=== PATIENT | male | born 1985 | race Caucasian/White ===

== ENCOUNTER 2024-12-09 17:57 | Inpatient (IN) ==
[2024-12-09 18:50] LABS: Appearance Urine Clear (Clear); Bacteria Urine Automated None Seen (None Seen); Cast Urine Automated 0-2 /lpf (0-2); Epithelial Cell Urine Auto 0-2 /hpf (0-2); Glucose Urine UA 2+ (Negative); RBC Urine Automated 0-2 /hpf (0-2); WBC Urine Automated 0-5 /hpf (0-5)
[2024-12-09 18:52] LABS: Hematocrit (blood only) 40.5 % (42.0-52.0); Hemoglobin 13.7 g/dl (14.0-18.0); Mean Corpuscular Hemoglobin 30.7 pg (25.0-34.0); Mean Corpuscular Volume 90.8 fL (80.0-100.0); Platelet Count 382 K/uL (130-400); RDW Standard Deviation 40.8 fL (36.4-46.3); Red Blood Count 4.46 M/uL (4.70-6.10); White Blood Count 29.35 K/ul (4.8-10.8)
[2024-12-09 19:08] LABS: Alanine Aminotransferase 16.0 U/L (7-52); Albumin Level 4.3 gm/dl (3.4-5.0); Alkaline Phosphatase 73.0 U/L (34-104); Blood Urea Nitrogen 14.0 mg/dl (6-23); Calcium 9.8 mg/dl (8.6-10.3); Carbon Dioxide 26.0 mmol/L (21-32); Chloride 100.0 mmol/L (98-107); Creatinine Clr Calc Pharmacy 126.3 ml/min; Glucose 193.0 mg/dl (70-99(Fasting)); Potassium 4.2 mmol/L (3.5-5.1)
[2024-12-09 19:16] LABS: Albumin Globulin Ratio 1.1 (0.9-2); Anion Gap 9.0 (3-11); Globulin 4.0 gm/dl (2.5-4.0); Sodium 135.0 mmol/L (136-145); Total Protein 8.3 gm/dl (6.0-8.3)
--- NOTE | 2024-12-09 19:17 | Emergency Department Note ---
History of Present Illness General Chief complaint: Testicular Pain Stated complaint: RT TESTICLE SWOLLEN, PAIN PAST WEEK Time Seen by Provider: 12/09/24 19:12 History of Present Illness Maximum Pain Intensity: 6 This is a 39-year-old male who presents to the emergency department via private vehicle accompanied by corrections officers x 2 from [place] with complaints of "right swollen testicle, pain since last week". Patient notes worsening swelling over the past week. Was on antibiotics without change. Referred over concern for possible torsion. Denies any urinary symptoms. No trauma. Patient does note history of type 2 diabetes. Home Medications Medication Instructions Recorded Confirmed Type acetaminophen 500 mg tablet 1,000 mg PO BID PRN Pain 12/09/24 12/09/24 History (Tylenol Extra Strength) atorvastatin 10 mg tablet 10 mg PO HS 12/09/24 12/09/24 History meloxicam 7.5 mg tablet 7.5 mg PO BID 12/09/24 12/09/24 History metformin 500 mg tablet 500 mg PO DAILY 12/09/24 12/09/24 History Allergies Allergy/AdvReac Type Severity Reaction Status Date / Time No Known Allergies Allergy Verified 12/09/24 20:12 Past Med/Surg History Problem List (Updated 12/10/24 @ 03:03 by Oswaldo Ryan PA-C) Right testicular pain (Acute) Leukocytosis (Acute) Epididymitis, right (Acute) Orchitis of right testicle (Acute) Medical History (Updated 12/10/24 @ 03:03 by Oswaldo Ryan PA-C) Diabetes mellitus Hyperlipidemia Social History Smoking Status: Former smoker Tobacco Type: Cigarettes and Smokeless Tobacco (Dip or Chew) Hx Alcohol Use: No Hx Substance Use: No Preferred Language: Bolivian Communication Ability: Effective Beliefs That Will Affect Care: None Current Living Situation: Other Current Living Situation Comment: [facility] Feels Safe at Home: Yes Assistive Devices: Glasses Review of Systems A total of 10 systems reviewed and were otherwise negative Physical Exam Vital Signs Vital Signs - 24 hr 12/09/24 18:09 12/09/24 19:25 12/09/24 19:54 Temperature 36.6 C Temperature Source Temporal Artery Scan Pulse Rate 81 73 Pulse Rate from SpO2 Sensor 72 Respiratory Rate 18 21 Respiratory Effort / Characteristics Non-Labored Respiratory Depth Normal Blood Pressure 122/84 Blood Pressure Mean 96 Pulse Oximetry 97 97 Oxygen Delivery Method Room Air Sepsis New/Unexplained Change in Mental Status No Sepsis Action Taken by Nursing No Action Required 12/09/24 20:00 12/09/24 20:00 12/09/24 20:02 Temperature Temperature Source Pulse Rate 70 69 Pulse Rate from SpO2 Sensor 70 Respiratory Rate 22 Respiratory Effort / Characteristics Respiratory Depth Blood Pressure Blood Pressure Mean Pulse Oximetry 98 Oxygen Delivery Method Room Air Sepsis New/Unexplained Change in Mental Status Sepsis Action Taken by Nursing 12/09/24 20:18 12/09/24 20:21 12/09/24 20:45 Temperature Temperature Source Pulse Rate 62 71 63 Pulse Rate from SpO2 Sensor 64 72 63 Respiratory Rate 21 22 19 Respiratory Effort / Characteristics Respiratory Depth Blood Pressure 111/62 Blood Pressure Mean 78 Pulse Oximetry 98 99 98 Oxygen Delivery Method Sepsis New/Unexplained Change in Mental Status Sepsis Action Taken by Nursing VITAL SIGNS - Vital signs and nursing notes were reviewed. Stable and afebrile. GENERAL -39-year-old male appearing his stated age who is in no acute distress. Communicates well with provider and answers questions appropriately. SKIN - Without rashes. Please see exam below HEAD - NC/AT. EYES - Sclera anicteric. LUNGS - CTA CARDIAC - RRR ABDOMEN - Abdominal contour normal without pulsations or visible masses. BS normoactive all four quadrants. No tenderness, palpable masses, hepatosplenomegaly, or ascites noted. EXTREMITIES - +5/5 strength noted in UE/LE bilaterally. NEUROLOGIC - CTA PSYCH -alert, oriented and pleasant on exam GUverbal consent was obtained. 2 corrections officers at bedside. ED attending physician Dr. Villalobos present at bedside to homeland security program specialist scrotal exam. There is erythema and edema with induration to the right hemiscrotum. Tenderness noted. Erythema does track to the right medial proximal thigh. There is no extension into the lower abdomen. Benign abdomen noted. No lesions. Course Administered Medications Atorvastatin Calcium (Atorvastatin 10 Mg Tab) 10 mg PO HS MARIELENA Stop: 01/08/25 22:59 Last Admin: 12/10/24 00:02 Dose: 10 mg Documented By: OLAYINKA Lactated Ringer's (Lr) 1,000 mls @ 80 mls/hr IV .[id number] MARIELENA Stop: 12/10/24 10:14 Last Admin: 12/09/24 22:18 Dose: 80 mls/hr Documented By: KAYLIE Piperacillin Sod/Tazobactam Sod (Zosyn) 4.5 gm in 100 mls @ 25 mls/hr IV Q8H MARIELENA; Protocol Stop: 12/20/24 01:59 Last Admin: 12/10/24 01:54 Dose: 25 mls/hr Documented By: OLAYINKA Insulin Aspart (Insulin Aspart Per Unit Charge) 0 units SC ACHS MARIELENA Stop: 01/08/25 22:59 Last Admin: 12/10/24 00:02 Dose: 1 units Documented By: OLAYINKA Co-signed By: aby Tramadol HCl (Tramadol Hcl 50 Mg Tablet) 50 mg PO Q4H PRN PRN Reason: Moderate Pain (Scale 4, 5, 6) Stop: 01/08/25 21:43 Last Admin: 12/10/24 02:03 Dose: 50 mg Documented By: Admin: 12/09/24 22:32 Dose: 50 mg Documented By: KAYLIE Discontinued Medications Piperacillin Sod/Tazobactam Sod (Zosyn) 4.5 gm in 100 mls @ 200 mls/hr IV NOW ONE; Protocol Stop: 12/09/24 20:10 Last Infusion: 12/09/24 22:01 Dose: Infused Documented By: Admin: 12/09/24 20:21 Dose: 200 mls/hr Documented By: KAYLIE Vancomycin HCl 2,250 mg/ (Sodium Chloride) 545 mls @ 200 mls/hr IV NOW ONE Stop: 12/09/24 22:24 Last Infusion: 12/10/24 00:15 Dose: Infused Documented By: Admin: 12/09/24 21:11 Dose: 200 mls/hr Documented By: XIAO Sodium Chloride (Nss) 1,000 mls @ 999 mls/hr IV .Q1H1M ONE Stop: 12/09/24 20:43 Last Infusion: 12/09/24 22:01 Dose: Infused Documented By: Admin: 12/09/24 20:21 Dose: 999 mls/hr Documented By: KAYLIE Morphine Sulfate (Morphine Sulfate 4 Mg/Ml 1 Ml Carp\\Vial) 4 mg IV NOW STA Stop: 12/09/24 19:58 Last Admin: 12/09/24 20:21 Dose: Not Given Documented By: KAYLIE Ondansetron HCl (Ondansetron Inj 2 Mg/Ml 2 Ml Vial) 4 mg IV NOW STA Stop: 12/09/24 19:58 Last Admin: 12/09/24 20:21 Dose: 4 mg Documented By: KAYLEI Medical Decision Making Laboratory Data 12/09/24 18:33 12/09/24 18:33 Lab Results 12/09/24 12/09/24 Range/Units 18:33 20:01 WBC 29.35 H (4.8-10.8) K/ul RBC 4.46 L (4.70-6.10) M/uL Hgb 13.7 L (14.0-18.0) g/dl Hct 40.5 L (42.0-52.0) % MCV 90.8 (80.0-100.0) fL MCH 30.7 (25.0-34.0) pg MCHC 33.8 (32.0-36.0) g/dL RDW Std Deviation 40.8 (36.4-46.3) fL RDW Coeff of Cristian 12.3 (11.5-14.5) % Plt Count 382 (130-400) K/uL MPV 9.4 (9.4-12.4) fL Neutrophils % (Manual) 85 % Lymphocytes % (Manual) 9 % Monocytes % (Manual) 3 % Metamyelocytes % (Man) 1 % Myelocytes % (Man) 1 % Plasma Cell % (Manual) 1 % Neutrophils # (Manual) 24.95 H (1.40-6.50) K/uL Total Absolute Neuts 24.95 H (1.4-6.5) K/uL Lymphocytes # (Manual) 2.64 (1.2-3.4) K/uL Total Abs Lymphocytes 2.94 (1.2-3.4) K/uL Monocytes # (Manual) 0.88 H (0.11-0.59) K/uL Metamyelocytes # (Man) 0.29 H (0-0) K/uL Myelocytes # (Manual) 0.29 H (0-0) K/uL Plasma Cell # (Manual) 0.29 H (0-0) K/uL RBC Morphology Unremarkable Sodium 135 L (136-145) mmol/L Potassium 4.2 (3.5-5.1) mmol/L Chloride 100 (98-107) mmol/L Carbon Dioxide 26 (21-32) mmol/L Anion Gap 9 (3-11) BUN 14 (6-23) mg/dl Creatinine 1.03 (0.6-1.4) mg/dl Est Cr Clr Drug Dosing 126.3 ml/min eGFR 95.35 BUN/Creatinine Ratio 13.6 (10-20) Glucose 193 H (70-99(Fasting)) mg/dl Lactate 2.3 H* (0.4-2.0) mmol/L Calcium 9.8 (8.6-10.3) mg/dl Total Bilirubin 0.5 (0.2-1.0) mg/dl AST 16 (13-39) U/L ALT 16 (7-52) U/L Alkaline Phosphatase 73 (34-104) U/L Total Protein 8.3 (6.0-8.3) gm/dl Albumin 4.3 (3.4-5.0) gm/dl Globulin 4.0 (2.5-4.0) gm/dl Albumin/Globulin Ratio 1.1 (0.9-2) Procalcitonin 0.25 (0-0.5) ng/ml Urine Color Yellow Urine Appearance Clear (Clear) Urine pH 6.0 (4.5-7.5) Ur Specific [place] 1.023 (1.000-1.030) Urine Protein 1+ H (Negative) Urine Glucose (UA) 2+ H (Negative) Urine Ketones Trace H (Negative) Urine Blood Negative (Negative) Urine Nitrite Negative (Negative) Urine Bilirubin Negative (Negative) Urine Urobilinogen Negative (Negative) Ur Leukocyte Esterase Trace H (Negative) Urine WBC (Auto) 0-5 (0-5) /hpf Urine RBC (Auto) 0-2 (0-2) /hpf U Hyaline Cast (Auto) 0-2 (0-2) /lpf U Epithel Cells (Auto) 0-2 (0-2) /hpf Urine Bacteria (Auto) None Seen (None Seen) Urine Comment Imaging Data Radiologist's Impression: Scrotum Ultrasound 12/09/24 18:33 Clinical history: Pain and swelling Technique: Testicular sonography was performed Findings: There is increased vascularity of the right testis, which may be due to orchitis. No clear mass lesion is seen The right epididymis appears enlarged, hypervascular, and heterogeneous, concerning for epididymitis The left testis and left epididymis appear unremarkable. There are small bilateral hydroceles. No definite varicocele is noted. No hernia is visualized Impression: 1. Suspected right orchitis and right epididymitis 2. Small bilateral hydroceles ACT 112: Positive. There are findings on this exam that require communication between the performing entity and the patient following Patient Test Result Information Act ([place] ACT 112) guidelines. Electronically signed by Paco Arias 12-09-2024 7:57 PM MDM Narrative Patient was seen and evaluated as above in room D6. Review was performed of triage nursing notes and vital signs. I did review pertinent previous visits and patient history. Patient presents to us today for evaluation of right scrotal pain for the past week. No trauma. No injury. Examination is positive for that of right hemiscrotum erythema and edema as well as tenderness. Options of care were discussed with the patient. IV access was established. Labs were drawn. There is leukocytosis 29.35. Minor anemia with hemoglobin at 13.7. Mild hyponatremia 135. Hyperglycemia 193. Lactate initially returned elevated but cleared with fluids. 30/kg not given as patient does not meet criteria for severe sepsis, lactate less than 4. Procalcitonin detectable but within normal range. Urinalysis without sign of infection. Ultrasound positive for right orchitis and epididymitis which does clinically correlate. Broad- spectrum IV antibiotics ordered. At this time I do believe that hospitalization is warranted. Case discussed with the hospitalist service. Please refer to further documentation regarding his stay. In the evaluation and treatment of this patient the following differential diagnoses were entertained: UTI, pyelonephritis, epididymitis, orchitis, Rachel gangrene, among others Impression & Plan Orchitis of right testicle, Epididymitis, right, Leukocytosis, Right testicular pain Discharge Plan Visit Data Chief Complaint: Testicular Pain Stated Complaint: RT TESTICLE SWOLLEN, PAIN PAST WEEK ED Provider: Chase Villalobos ED Midlevel Provider: Oswaldo Ryan Discharge Problem: Orchitis of right testicle, Epididymitis, right, Leukocytosis, Right testicular pain Patient Disposition: Admitted As Inpatient Condition: Good Discharge Instructions Interventions: ED Discharge Assessment Last Done: 12/09/24 22:39
[2024-12-09 19:25] LABS: Bilirubin,Total 0.5 mg/dl (0.2-1.0)
[2024-12-09 19:33] LABS: ALC (manual) 2.94 K/uL (1.2-3.4); ANC (manual) 24.95 K/uL (1.4-6.5); RBC Morphology Unremarkable
[2024-12-09] MEDS ORDERED: VANCOMYCIN CONSULT ACTIVE PRN ×2 (19:41→23:00)
--- NOTE | 2024-12-09 19:58 | Ultrasound Report ---
Clinical history: Pain and swelling Technique: Testicular sonography was performed Findings: There is increased vascularity of the right testis, which may be due to orchitis. No clear mass lesion is seen The right epididymis appears enlarged, hypervascular, and heterogeneous, concerning for epididymitis The left testis and left epididymis appear unremarkable. There are small bilateral hydroceles. No definite varicocele is noted. No hernia is visualized Impression: 1. Suspected right orchitis and right epididymitis 2. Small bilateral hydroceles ACT 112: Positive. There are findings on this exam that require communication between the performing entity and the patient following Patient Test Result Information Act ([place] ACT 112) guidelines. Electronically signed by Paco Arias 12-09-2024 7:57 PM
[2024-12-09] MEDS: MoRPHine SULFATE 4 MG/ML 1 ML CARP\\VIAL IV STA (20:21)
[2024-12-09] MEDS: SODIUM CHLORIDE 0.9% 1,000 ML IV ONE (20:21)
[2024-12-09] MEDS: ONDANSETRON INJ 2 MG/ML 2 ML VIAL IV STA (20:21)
[2024-12-09] MEDS: PIPERACILLIN/TAZOBACTAM 4.5 GM/100 ML BAG IV ONE (20:21)
--- NOTE | 2024-12-09 20:48 | History & Physical Report ---
Date of Service December 09, 2024 Assessment & Plan (1) Orchitis of right testicle: (2) Epididymitis, right: (3) Hyperlipidemia: (4) Diabetes mellitus: Plan The patient is a 39-year-old male past medical history including hyperlipidemia, and diabetes mellitus. He presents to the emergency department with progressively worsening painful and swollen right testicle since 12/02/2024, despite have been placed on Sulfatrim DS twice daily on that date. He denies any recent trauma. He denies any systemic symptoms of fevers, chills, joint or muscle aches. He said no previous occurrence of this type of problem. Ultrasound of scrotum in the emergency department showed a suspected right orchitis and epididymitis. He was started on vancomycin IV and Zosyn IV by the ED, and received 1 L normal saline bolus from the ED. [facility]. Right sided orchitis/epididymitis- WBC 29.35 with left shift Continue vancomycin IV and Zosyn IV begun in ED Status post 1 L normal saline bolus in the ED Placed on LR at 80 mL/h x 1 additional liter CBC with differential, renal function panel magnesium level in the a.m. Acetaminophen 650 mg by mouth every 6 hours as needed for mild pain or fever Tramadol 50 mg by mouth every 4 hours as needed for moderate pain Morphine 2 mg IV every 4 hours as needed for severe pain Consult urology Diabetes mellitus- Glucose 193 on admission Hold metformin Place in Accu-Cheks with NovoLog SSI Check hemoglobin A1c Hyperlipidemia- Continue atorvastatin Check a fasting lipid panel History of Present Illness Chief Complaint: The patient presents to the emergency department from [facility] accompanied by corrections officers x 2, with complaint of a swollen painful right testicle worsening over the past week despite having been put on Sulfatrim DS twice daily since 12/02/2024. Primary Care Provider: [facility] The patient is a 39-year-old male past medical history including hyperlipidemia, and diabetes mellitus. He presents to the emergency department with progressively worsening painful and swollen right testicle since 12/02/2024, despite have been placed on Sulfatrim DS twice daily on that date. He denies any recent trauma. He denies any systemic symptoms of fevers, chills, joint or muscle aches. He said no previous occurrence of this type of problem. Ultrasound of scrotum in the emergency department showed a suspected right orchitis and epididymitis. He was started on vancomycin IV and Zosyn IV by the ED, and received 1 L normal saline bolus from the ED. [facility] was then [facility] Allergies Allergy/AdvReac Type Severity Reaction Status Date / Time No Known Allergies Allergy Verified 12/09/24 20:12 Home Medications Medication Instructions Recorded Confirmed Type acetaminophen 500 mg tablet 1,000 mg PO BID PRN Pain 12/09/24 12/09/24 History (Tylenol Extra Strength) atorvastatin 10 mg tablet 10 mg PO HS 12/09/24 12/09/24 History meloxicam 7.5 mg tablet 7.5 mg PO BID 12/09/24 12/09/24 History metformin 500 mg tablet 500 mg PO DAILY 12/09/24 12/09/24 History Past Med/Surg History Problem List (Updated 12/09/24 @ 21:39 by Price Santiago MD) Epididymitis, right Orchitis of right testicle Medical History (Updated 12/09/24 @ 21:39 by Price Santiago MD) Diabetes mellitus Hyperlipidemia Social History Smoking Status: Former smoker Preferred Language: Nigerian Feels Safe at Home: Yes Review of Systems Review of Systems: The patient denies chest pain, palpitations, shortness of breath, dyspnea on exertion, cough, lower extremity swelling, sore throat, fevers, chills, sweats, weight change, fatigue, nausea, vomiting, diarrhea , constipation, abdominal pain, blood in urine or stool, dysuria, urinary frequency or urgency, lightheadedness, dizziness, headache, memory loss, loss of consciousness, abnormal bruising or bleeding, imbalance, focal or generalized weakness, numbness or tingling in arms or legs, generalized arthralgias or myalgias, back or neck pain, or night sweats. The review of systems is otherwise negative other than for that already noted above, and at least 10 systems have been reviewed. Physical Exam Physical Exam: The patient is awake, alert and oriented 3, well developed and well nourished, normocephalic and atraumatic, lying in bed and in no acute distress. HEENT--PERRL, EOMI, mucous membranes and oropharynx mildly dry. Neck--supple. No JVD. No bruits. Thyroid normal, trachea midline, no adenopathy. Heart--normal S1 and S2. No murmurs, rubs or gallops. Lungs--clear bilaterally, no respiratory distress, no accessory muscle use. Abdomen--normal bowel sounds and soft. Nontender. Nondistended, no hernias or masses, no organomegaly. Testicular exam-left normal. Right swollen and painful generally. Extremities--no cyanosis or clubbing. No edema. There are good distal pulses b/l. Dermatologic--normal skin turgor, normal color, no abnormal lymph nodes, no rash. Neurologic--cranial nerves II through XII grossly intact. Rheumatologic--normal range of motion. Psychiatric--normal affect. Results & Data Results & Data Vital Signs (Past 12 Hours) Vital Signs Temp Pulse Resp BP Pulse Ox O2 Del Method 12/09/24 20:21 71 22 111/62 99 12/09/24 20:18 62 21 98 12/09/24 20:02 69 12/09/24 20:00 70 22 98 12/09/24 20:00 Room Air 12/09/24 19:54 73 21 97 12/09/24 18:09 36.6 C 81 18 122/84 97 Room Air Laboratory Results Laboratory Results WBC 29.35 K/ul (4.8-10.8) H 12/09/24 18:33 RBC 4.46 M/uL (4.70-6.10) L 12/09/24 18:33 Hgb 13.7 g/dl (14.0-18.0) L 12/09/24 18:33 Hct 40.5 % (42.0-52.0) L 12/09/24 18:33 MCV 90.8 fL (80.0-100.0) 12/09/24 18:33 MCH 30.7 pg (25.0-34.0) 12/09/24 18:33 MCHC 33.8 g/dL (32.0-36.0) 12/09/24 18:33 RDW Std Deviation 40.8 fL (36.4-46.3) 12/09/24 18:33 RDW Coeff of Cristian 12.3 % (11.5-14.5) 12/09/24 18:33 Plt Count 382 K/uL (130-400) 12/09/24 18:33 MPV 9.4 fL (9.4-12.4) 12/09/24 18:33 Neutrophils % (Manual) 85 % 12/09/24 18:33 Lymphocytes % (Manual) 9 % 12/09/24 18:33 Monocytes % (Manual) 3 % 12/09/24 18:33 Metamyelocytes % (Man) 1 % 12/09/24 18:33 Myelocytes % (Man) 1 % 12/09/24 18:33 Plasma Cell % (Manual) 1 % 12/09/24 18:33 Neutrophils # (Manual) 24.95 K/uL (1.40-6.50) H 12/09/24 18:33 Total Absolute Neuts 24.95 K/uL (1.4-6.5) H 12/09/24 18:33 Lymphocytes # (Manual) 2.64 K/uL (1.2-3.4) 12/09/24 18:33 Total Abs Lymphocytes 2.94 K/uL (1.2-3.4) 12/09/24 18:33 Monocytes # (Manual) 0.88 K/uL (0.11-0.59) H 12/09/24 18:33 Metamyelocytes # (Man) 0.29 K/uL (0-0) H 12/09/24 18:33 Myelocytes # (Manual) 0.29 K/uL (0-0) H 12/09/24 18:33 Plasma Cell # (Manual) 0.29 K/uL (0-0) H 12/09/24 18:33 RBC Morphology Unremarkable 12/09/24 18:33 Sodium 135 mmol/L (136-145) L 12/09/24 18:33 Potassium 4.2 mmol/L (3.5-5.1) 12/09/24 18:33 Chloride 100 mmol/L (98-107) 12/09/24 18:33 Carbon Dioxide 26 mmol/L (21-32) 12/09/24 18:33 Anion Gap 9 (3-11) 12/09/24 18:33 BUN 14 mg/dl (6-23) 12/09/24 18: Creatinine 1.03 mg/dl (0.6-1.4) 12/09/24 18: Est Cr Clr Drug Dosing 126.3 ml/min 12/09/24 18:33 eGFR 95.35 12/09/24 18:33 BUN/Creatinine Ratio 13.6 (10-20) 12/09/24 18: Glucose 193 mg/dl (70-99(Fasting)) H 12/09/24 18: Lactate 2.3 mmol/L (0.4-2.0) H* 12/09/24 20:01 Calcium 9.8 mg/dl (8.6-10.3) 12/09/24 18: Total Bilirubin 0.5 mg/dl (0.2-1.0) 12/09/24 18: AST 16 U/L (13-39) 12/09/24 18: ALT 16 U/L (7-52) 12/09/24 18: Alkaline Phosphatase 73 U/L (34-104) 12/09/24 18: Total Protein 8.3 gm/dl (6.0-8.3) 12/09/24 18: Albumin 4.3 gm/dl (3.4-5.0) 12/09/24 18: Globulin 4.0 gm/dl (2.5-4.0) 12/09/24 18: Albumin/Globulin Ratio 1.1 (0.9-2) 12/09/24 18: Urine Color Yellow 12/09/24 18: Urine Appearance Clear (Clear) 12/09/24 18: Urine pH 6.0 (4.5-7.5) 12/09/24 18: Ur Specific [place] 1.023 (1.000-1.030) 12/09/24 18: Urine Protein 1+ (Negative) H 12/09/24 18: Urine Glucose (UA) 2+ (Negative) H 12/09/24 18: Urine Ketones Trace (Negative) H 12/09/24 18: Urine Blood Negative (Negative) 12/09/24 18: Urine Nitrite Negative (Negative) 12/09/24 18: Urine Bilirubin Negative (Negative) 12/09/24 18: Urine Urobilinogen Negative (Negative) 12/09/24 18: Ur Leukocyte Esterase Trace (Negative) H 12/09/24 18: Urine WBC (Auto) 0-5 /hpf (0-5) 12/09/24 18:33 Urine RBC (Auto) 0-2 /hpf (0-2) 12/09/24 18:33 U Hyaline Cast (Auto) 0-2 /lpf (0-2) 12/09/24 18:33 U Epithel Cells (Auto) 0-2 /hpf (0-2) 12/09/24 18:33 Urine Bacteria (Auto) None Seen (None Seen) 12/09/24 18:33 Urine Comment 12/09/24 18:33 Impressions Scrotum Ultrasound 12/09/24 18:33 Clinical history: Pain and swelling Technique: Testicular sonography was performed Findings: There is increased vascularity of the right testis, which may be due to orchitis. No clear mass lesion is seen The right epididymis appears enlarged, hypervascular, and heterogeneous, concerning for epididymitis The left testis and left epididymis appear unremarkable. There are small bilateral hydroceles. No definite varicocele is noted. No hernia is visualized Impression: 1. Suspected right orchitis and right epididymitis 2. Small bilateral hydroceles ACT 112: Positive. There are findings on this exam that require communication between the performing entity and the patient following Patient Test Result Information Act ([place] ACT 112) guidelines. Electronically signed by Paco Arias 12-09-2024 7:57 PM Code Status & VTE Plan Code Status Full code VTE Prophylaxis Plan VTE Prophylaxis will be ordered: Yes PG Care Time/CCT Total # of Minutes Spent Total Time Spent with Patient: Total time spent is greater than 50% in coordination of care (as documented) at patient's floor/unit and/or counseling patient: Coding Level of Care Code 12354 INT INP/OBS CARE 3/75MIN Diagnoses Orchitis of right testicle N45.2 Epididymitis, right N45.1 Hyperlipidemia E78.5 Diabetes mellitus E11.9
[2024-12-09] MEDS: VANCOMYCIN HCL 2,250 MG in SODIUM CHLORIDE 0.9% 500 ML IV ONE (21:11)
[2024-12-09] MEDS ORDERED: MoRPHine SULFATE 4 MG/ML 1 ML CARP\\VIAL IV PRN (21:44)
[2024-12-09] MEDS: LACTATED RINGER'S 1,000 ML IV SCH (22:18)
[2024-12-09] MEDS ORDERED: GLUCOSE 40% GEL 15 GM TUBE PO PRN (23:00)
[2024-12-09] MEDS ORDERED: GLUCOSE 10 TAB/TUBE PO PRN (23:00)
[2024-12-09] MEDS ORDERED: GLUCAGON FOR INJ 1 MG VIAL SQ PRN (23:00)
[2024-12-09] MEDS ORDERED: ONDANSETRON INJ 2 MG/ML 2 ML VIAL IV PRN (23:00)
[2024-12-09] MEDS ORDERED: DEXTROSE 50% 50 ML SYRINGE IV PRN (23:00)
[2024-12-09] MEDS ORDERED: CARBOHYDRATES FOR HYPOGLYCEMIA PO PRN (23:00)
[2024-12-09] MEDS ORDERED: ACETAMINOPHEN 325 MG TAB PO PRN (23:00)
[2024-12-10] MEDS: ATORVASTATIN 10 MG TAB PO SCH (00:02)
[2024-12-10] MEDS: INSULIN ASPART PER UNIT CHARGE SC SCH (00:02)
[2024-12-10] MEDS: 4.5GM EXT INFUSION IV SCH (01:54)
[2024-12-10] MEDS ORDERED: PIPERACILLIN/TAZOBACTAM 4.5 GM/100 ML BAG IV ONE (05:00)
[2024-12-10 07:18] LABS: Hemoglobin A1C 8.2 % (4.5-5.6)
[2024-12-10] MEDS: VANCOMYCIN HCL 1,500 MG in SODIUM CHLORIDE 0.9% 500 ML IV SCH (07:30)
[2024-12-10 07:33] LABS: Hematocrit (blood only) 35.2 % (42.0-52.0); Hemoglobin 11.7 g/dl (14.0-18.0); Immature Granulocytes # (auto) 0.21 K/uL (0.01-0.20); Immature Granulocytes % (auto) 1.1 %; Mean Corpuscular Hemoglobin 30.5 pg (25.0-34.0); Mean Corpuscular Volume 91.7 fL (80.0-100.0); Platelet Count 342 K/uL (130-400); RDW Standard Deviation 41.5 fL (36.4-46.3); Red Blood Count 3.84 M/uL (4.70-6.10); White Blood Count 19.31 K/ul (4.8-10.8)
[2024-12-10 07:59] LABS: Albumin Level 3.4 gm/dl (3.4-5.0); Anion Gap 8.0 (3-11); Blood Urea Nitrogen 11.0 mg/dl (6-23); Calcium 9.0 mg/dl (8.6-10.3); Carbon Dioxide 28.0 mmol/L (21-32); Chloride 104.0 mmol/L (98-107); Cholesterol 82.0 mg/dl (0-200); Creatinine Clr Calc Pharmacy 133.7 ml/min; Glucose 117.0 mg/dl (70-99(Fasting)); HDL Cholesterol 14.0 mg/dl; Magnesium 2.2 mg/dl (1.7-2.4); Potassium 4.0 mmol/L (3.5-5.1); Sodium 140.0 mmol/L (136-145); Triglycerides 110.0 mg/dl (0-150)
--- NOTE | 2024-12-10 11:03 | Pharmacy Report ---
Pharmacy PK ABX Note - Date of Service December 10, 2024 - Assessment and Plan Assessment 39 year old M receiving vancomycin and Zosyn for treatment of right sided orchitis/epididymitis. Progressively worsening pain and testicle swelling despite starting on Bactrim DS on 12/02. * leukocytosis (WBC 29.3 on admit and 19.3 today), afebrile, renal function normal and at baseline. * Blood cultures x 2 from 12/09 are pending Day # 2 of antimicrobial therapy. Plan Vancomycin * Loading dose: 2250 mg IV x 1 * Maintenance dose: 1500 mg IV every 12 hours * Regimen is predicted to achieve target AUC/HILDA of 400-600 mg/L.hr * Random level ordered for: 12/11 at 0730 Pharmacy will continue to follow and will adjust dose/frequency as necessary. Thank you. Pharmacy has transitioned to AUC monitoring for vancomycin. AUC/HILDA is the preferred PK/PD target and is associated with decreased risk of nephrotoxicity compared to traditional trough targets.
[2024-12-10] MEDS: KETOROLAC 30 MG/ML VIAL IV SCH (17:57)
--- NOTE | 2024-12-10 20:56 | Hospitalist Progress Note ---
Date of Service December 10, 2024 Assessment & Plan (1) Orchitis of right testicle: (2) Epididymitis, right: (3) Hyperlipidemia: (4) Diabetes mellitus: Plan 39yo male with hyperlipidemia and diabetes mellitus. Presented with progressively worsening painful and swollen right testicle since 12/02/2024 despite have been placed on Sulfatrim DS twice daily on that date. He denies any recent trauma. H Ultrasound of scrotum showed suspected right orchitis and epididymitis. He was started on vancomycin IV and Zosyn IV by the ED. Right sided orchitis/epididymitis- -clinically improving -peak WBC of 29.35 -improved today to 19 -repeat cbc in am -continue vancomycin IV and Zosyn IV begun in ED -add toradol 30mg IV q6h x 4 doses to help with pain/swelling -scrotal support & elevation -ice -send urine for GC/chlamydia but he is improving w/o specific Rx for those pathogens -at d/c can likely go to levaquin 500mg daily x 10 days PO Diabetes mellitus- -Hold metformin -a1c 8.2% -metformin dose should be increased at discharge -novolog SSI while here Hyperlipidemia- -Continue atorvastatin if doing better tomorrow can d/c back to [facility] Admission and Anticipated Discharge Date Admission Date: December 09, 2024 Subjective only complaint is that of scrotal pain but not as severe as back at the intermediate no fevers no chills eating well recommended scrotal support while in bed, briefs, ice, etc. Physical Exam Physical Exam: gen - NAD, nontoxic, laying in bed watching TV mouth - MMM heart - RRR, s1 s2, no murmur lungs - CTA b/l abd - soft NT ND BS+ ext - no edema, pulses 2+ b/l feet - right-sided scrotal edema with erythema/inflammation; left scrotum minimal swelling Results & Data Results & Data Vital Signs (Past 12 Hours) Vital Signs Temp Pulse Resp BP Pulse Ox O2 Del Method 12/10/24 15:26 36.8 C 83 16 134/73 97 Room Air Laboratory Results Laboratory Results - last 48 hr 12/09/24 12/09/24 12/09/24 18:33 20:01 21:50 WBC 29.35 H RBC 4.46 L Hgb 13.7 L Hct 40.5 L MCV 90.8 MCH 30.7 MCHC 33.8 RDW Std Deviation 40.8 RDW Coeff of Cristian 12.3 Plt Count 382 MPV 9.4 Immature Gran % (Auto) Neut % (Auto) Lymph % (Auto) [place] % (Auto) Eos % (Auto) Baso % (Auto) Neut # (Auto) Lymph # (Auto) [place] # (Auto) Eos # (Auto) Baso # (Auto) Immature Gran # (Auto) Neutrophils % (Manual) 85 Lymphocytes % (Manual) 9 Monocytes % (Manual) 3 Metamyelocytes % (Man) 1 Myelocytes % (Man) 1 Plasma Cell % (Manual) 1 Neutrophils # (Manual) 24.95 H Total Absolute Neuts 24.95 H Lymphocytes # (Manual) 2.64 Total Abs Lymphocytes 2.94 Monocytes # (Manual) 0.88 H Metamyelocytes # (Man) 0.29 H Myelocytes # (Manual) 0.29 H Plasma Cell # (Manual) 0.29 H RBC Morphology Unremarkable Sodium 135 L Potassium 4.2 Chloride 100 Carbon Dioxide 26 Anion Gap 9 BUN 14 Creatinine 1.03 Est Cr Clr Drug Dosing 126.3 eGFR 95.35 BUN/Creatinine Ratio 13.6 Glucose 193 H POC Glucose Estimat Average Glucose Hemoglobin A1c Lactate 2.3 H* 1.2 Calcium 9.8 Phosphorus Magnesium Total Bilirubin 0.5 AST 16 ALT 16 Alkaline Phosphatase 73 Total Protein 8.3 Albumin 4.3 Globulin 4.0 Albumin/Globulin Ratio 1.1 Triglycerides Cholesterol LDL Cholesterol, Calc VLDL Cholesterol, Calc HDL Cholesterol Cholesterol/HDL Ratio Procalcitonin 0.25 Urine Color Yellow Urine Appearance Clear Urine pH 6.0 Ur Specific [place] 1.023 Urine Protein 1+ H Urine Glucose (UA) 2+ H Urine Ketones Trace H Urine Blood Negative Urine Nitrite Negative Urine Bilirubin Negative Urine Urobilinogen Negative Ur Leukocyte Esterase Trace H Urine WBC (Auto) 0-5 Urine RBC (Auto) 0-2 U Hyaline Cast (Auto) 0-2 U Epithel Cells (Auto) 0-2 Urine Bacteria (Auto) None Seen Urine Comment Random Vancomycin 12/09/24 12/10/24 12/10/24 23:06 06:30 08:14 WBC 19.31 H D RBC 3.84 L Hgb 11.7 L Hct 35.2 L MCV 91.7 MCH 30.5 MCHC 33.2 RDW Std Deviation 41.5 RDW Coeff of Cristian 12.4 Plt Count 342 MPV 9.3 L Immature Gran % (Auto) 1.1 Neut % (Auto) 73.1 Lymph % (Auto) 16.1 [place] % (Auto) 7.4 Eos % (Auto) 1.9 Baso % (Auto) 0.4 Neut # (Auto) 14.12 H Lymph # (Auto) 3.11 [place] # (Auto) 1.42 H Eos # (Auto) 0.37 Baso # (Auto) 0.08 Immature Gran # (Auto) 0.21 H Neutrophils % (Manual) Lymphocytes % (Manual) Monocytes % (Manual) Metamyelocytes % (Man) Myelocytes % (Man) Plasma Cell % (Manual) Neutrophils # (Manual) Total Absolute Neuts Lymphocytes # (Manual) Total Abs Lymphocytes Monocytes # (Manual) Metamyelocytes # (Man) Myelocytes # (Manual) Plasma Cell # (Manual) RBC Morphology Sodium 140 Potassium 4.0 Chloride 104 Carbon Dioxide 28 Anion Gap 8 BUN 11 Creatinine 0.95 Est Cr Clr Drug Dosing 133.7 eGFR 105.07 BUN/Creatinine Ratio 11.6 Glucose 117 H POC Glucose 141 H 103 H Estimat Average Glucose 189 Hemoglobin A1c 8.2 H Lactate Calcium 9.0 Phosphorus 3.5 Magnesium 2.2 Total Bilirubin AST ALT Alkaline Phosphatase Total Protein Albumin 3.4 Globulin Albumin/Globulin Ratio Triglycerides 110 Cholesterol 82 LDL Cholesterol, Calc 46 VLDL Cholesterol, Calc 22 HDL Cholesterol 14 Cholesterol/HDL Ratio 5.9 H Procalcitonin Urine Color Urine Appearance Urine pH Ur Specific [place] Urine Protein Urine Glucose (UA) Urine Ketones Urine Blood Urine Nitrite Urine Bilirubin Urine Urobilinogen Ur Leukocyte Esterase Urine WBC (Auto) Urine RBC (Auto) U Hyaline Cast (Auto) U Epithel Cells (Auto) Urine Bacteria (Auto) Urine Comment Random Vancomycin 12/10/24 12/10/24 12/10/24 11:55 16:29 20:11 WBC RBC Hgb Hct MCV MCH MCHC RDW Std Deviation RDW Coeff of Cristian Plt Count MPV Immature Gran % (Auto) Neut % (Auto) Lymph % (Auto) [place] % (Auto) Eos % (Auto) Baso % (Auto) Neut # (Auto) Lymph # (Auto) [place] # (Auto) Eos # (Auto) Baso # (Auto) Immature Gran # (Auto) Neutrophils % (Manual) Lymphocytes % (Manual) Monocytes % (Manual) Metamyelocytes % (Man) Myelocytes % (Man) Plasma Cell % (Manual) Neutrophils # (Manual) Total Absolute Neuts Lymphocytes # (Manual) Total Abs Lymphocytes Monocytes # (Manual) Metamyelocytes # (Man) Myelocytes # (Manual) Plasma Cell # (Manual) RBC Morphology Sodium Potassium Chloride Carbon Dioxide Anion Gap BUN Creatinine Est Cr Clr Drug Dosing eGFR BUN/Creatinine Ratio Glucose POC Glucose 166 H 116 H 186 H Estimat Average Glucose Hemoglobin A1c Lactate Calcium Phosphorus Magnesium Total Bilirubin AST ALT Alkaline Phosphatase Total Protein Albumin Globulin Albumin/Globulin Ratio Triglycerides Cholesterol LDL Cholesterol, Calc VLDL Cholesterol, Calc HDL Cholesterol Cholesterol/HDL Ratio Procalcitonin Urine Color Urine Appearance Urine pH Ur Specific [place] Urine Protein Urine Glucose (UA) Urine Ketones Urine Blood Urine Nitrite Urine Bilirubin Urine Urobilinogen Ur Leukocyte Esterase Urine WBC (Auto) Urine RBC (Auto) U Hyaline Cast (Auto) U Epithel Cells (Auto) Urine Bacteria (Auto) Urine Comment Random Vancomycin Diagnostic Findings Scrotum Ultrasound 12/09/24 18:33 Clinical history: Pain and swelling Technique: Testicular sonography was performed Findings: There is increased vascularity of the right testis, which may be due to orchitis. No clear mass lesion is seen The right epididymis appears enlarged, hypervascular, and heterogeneous, concerning for epididymitis The left testis and left epididymis appear unremarkable. There are small bilateral hydroceles. No definite varicocele is noted. No hernia is visualized Impression: 1. Suspected right orchitis and right epididymitis 2. Small bilateral hydroceles ACT 112: Positive. There are findings on this exam that require communication between the performing entity and the patient following Patient Test Result Information Act ([place] ACT 112) guidelines. Electronically signed by Paco Arias 12-09-2024 7:57 PM Microbiology 12/09/24 19:59 Blood Aerobic Blood Culture - Preliminary No growth in Aerobic bottle after 24 hours. 12/09/24 19:59 Blood Anaerobic Blood Culture - Final 12/09/24 19:59 Blood Aerobic Blood Culture - Preliminary No growth in Aerobic bottle after 24 hours. 12/09/24 19:59 Blood Anaerobic Blood Culture - Preliminary No growth in Anaerobic bottle after 24 hours. PG Care Time/CCT Total # of Minutes Spent Total Time Spent with Patient: Total time spent is greater than 50% in coordination of care (as documented) at patient's floor/unit and/or counseling patient: Coding Level of Care Code 14997 SUB INP/OBS CARE 2MIN Diagnoses Orchitis of right testicle N45.2 Epididymitis, right N45.1 Hyperlipidemia E78.5 Diabetes mellitus E11.9
[2024-12-11] MEDS: VANCOMYCIN LEVEL ONE (07:32)
[2024-12-11 07:34] VITALS: BP 110/72; PULSE 59; RESP 18; TEMP 98.1; O2SAT 96
[2024-12-11 07:49] LABS: Hematocrit (blood only) 35.6 % (42.0-52.0); Hemoglobin 11.7 g/dl (14.0-18.0); Immature Granulocytes # (auto) 0.15 K/uL (0.01-0.20); Immature Granulocytes % (auto) 1.5 %; Mean Corpuscular Hemoglobin 30.1 pg (25.0-34.0); Mean Corpuscular Volume 91.5 fL (80.0-100.0); Platelet Count 351 K/uL (130-400); RDW Standard Deviation 41.5 fL (36.4-46.3); Red Blood Count 3.89 M/uL (4.70-6.10); White Blood Count 10.17 K/ul (4.8-10.8)
[2024-12-11 08:12] LABS: Albumin Level 3.3 gm/dl (3.4-5.0); Anion Gap 7.0 (3-11); Blood Urea Nitrogen 15.0 mg/dl (6-23); Calcium 9.0 mg/dl (8.6-10.3); Carbon Dioxide 28.0 mmol/L (21-32); Chloride 106.0 mmol/L (98-107); Creatinine Clr Calc Pharmacy 128.3 ml/min; Glucose 114.0 mg/dl (70-99(Fasting)); Magnesium 2.3 mg/dl (1.7-2.4); Potassium 4.3 mmol/L (3.5-5.1); Sodium 141.0 mmol/L (136-145)
--- NOTE | 2024-12-11 11:19 | Pharmacy Report ---
Pharmacy PK ABX Note - Date of Service December 11, 2024 - Assessment and Plan Assessment 12/11: * Vancomycin level this AM was ~10 mcg/ml - current dosing associated with goal AUC/HILDA therefore will continue current regimen 12/10: * 39 year old M receiving vancomycin and Zosyn for treatment of right sided orchitis/epididymitis. Progressively worsening pain and testicle swelling despite starting on Bactrim DS on 12/02. * leukocytosis (WBC 29.3 on admit and 19.3 today), afebrile, renal function normal and at baseline. * Blood cultures x 2 from 12/09 are pending Plan Vancomycin * Maintenance dose: Continue 1500 mg IV every 12 hours Pharmacy will continue to follow and will adjust dose/frequency as necessary. Thank you. Pharmacy has transitioned to AUC monitoring for vancomycin. AUC/HILDA is the preferred PK/PD target and is associated with decreased risk of nephrotoxicity compared to traditional trough targets.
--- NOTE | 2024-12-11 14:03 | Discharge Summary ---
Discharge Summary Date of Service December 11, 2024 Principal Dx & Hospital Course #1 = Principal Diagnosis (1) Orchitis of right testicle: (2) Epididymitis, right: (3) Hyperlipidemia: (4) Diabetes mellitus: Plan 39yo male with hyperlipidemia and diabetes mellitus. Presented with progressively worsening painful and swollen right testicle since 12/02/2024 despite have been placed on Sulfatrim DS twice daily on that date. He denies any recent trauma. H Ultrasound of scrotum showed suspected right orchitis and epididymitis. He was started on vancomycin IV and Zosyn IV by the ED. Right sided orchitis/epididymitis- -clinically improving -peak WBC of 29.35 -improved today to 19 -repeat cbc in am -continue vancomycin IV and Zosyn IV begun in ED -add toradol 30mg IV q6h x 4 doses to help with pain/swelling -scrotal support & elevation -ice -send urine for GC/chlamydia but he is improving w/o specific Rx for those pathogens -at d/c can likely go to levaquin 500mg daily x 10 days PO Diabetes mellitus- -Hold metformin -a1c 8.2% -metformin dose should be increased at discharge -novolog SSI while here Hyperlipidemia- -Continue atorvastatin if doing better tomorrow can d/c back to [facility] Admission HPI Per Admitting Provider The patient is a 39-year-old male past medical history including hyperlipidemia, and diabetes mellitus. He presents to the emergency department with progressively worsening painful and swollen right testicle since 12/02/2024, despite have been placed on Sulfatrim DS twice daily on that date. He denies any recent trauma. He denies any systemic symptoms of fevers, chills, joint or muscle aches. He said no previous occurrence of this type of problem. Ultrasound of scrotum in the emergency department showed a suspected right orchitis and epididymitis. He was started on vancomycin IV and Zosyn IV by the ED, and received 1 L normal saline bolus from the ED. He was then referred for evaluation for admission to the [place] [facility]ist service. Discharge Exam gen - NAD, nontoxic, laying in bed watching TV mouth - MMM heart - RRR, s1 s2, no murmur lungs - CTA b/l abd - soft NT ND BS+ ext - no edema, pulses 2+ b/l feet - right-sided scrotal edema with erythema/inflammation; left scrotum minimal swelling Discharge Plan Discharge Items [facility] Reason For Visit: RIGHT ORCHITIS, EPIDIMYTITIS Discharge Diagnosis: Right-sided orchitis & epididymitis Type 2 diabetes - uncontrolled (Hba1c 8.2%) Condition on Discharge: Good Activity: As commented below Activity Comment: nothing strenuous until scrotal swelling is significantly improved Lifting: No more than 10 pounds Exercise Comment: no heavy exertional activity until off all antibiotics Non-emergency contact: Primary Care Provider Call non-emergency contact if: you have any medication questions, your symptoms worsen, your pain is not controlled, your pain is worsening and you have a fever Follow-up/Referrals: Esthela JAIN [Primary Care Provider] - Diet: Carb Consistent or DM2 Addtl Attending Provider Instructions: Mr Tony was treated for right-sided orchitis/epididymitis. He improved with IV antibiotics. Blood cultures were negative. WBC count was 29, improving to 10 on day of discharge. Urine GC & chlamydia were sent/pending at discharge. Testicular u/s did not show torsion or testicular mass. Recommendations - 1. scrotal support - boxer briefs or standard briefs; avoid boxer shorts. 2. elevate scrotum when lying down. 3. ice prn. 4. naprosyn 500mg twice daily x 3 days then stop. 5. levofloxacin 500mg daily x 10 days starting 12/12/24. 6. for diabetes increase metformin to 500mg twice daily with meals. Pending Studies at Discharge: Yes Studies:: GC & Chlamydia urine testing Stand-Alone Forms: [facility] Skilled Items Patient informed of condition?: Yes Discharge Level of Care: Other Communicable Disease: No Discharge Prognosis: Stable Lines: None Urinary Catheter: No Medications and DC Order Prescriptions: New levofloxacin 500 mg tablet 500 mg PO DAILY 10 Days Qty: 10 0RF Rx Instructions: start 12/12/24. naproxen [Naprosyn] 500 mg tablet 500 mg PO BID 3 Days Qty: 6 0RF Continued atorvastatin 10 mg Tablet 10 mg PO HS acetaminophen [Tylenol Extra Strength] 500 mg Tablet 1,000 mg PO BID PRN (Reason: Pain) Changed metformin 500 mg Tablet 500 mg PO BIDM Qty: 60 0RF Held meloxicam 7.5 mg Tablet 7.5 mg PO BID Hold Instructions: hold until off naprosyn Discharge Orders: Discharge Order (Routine); Ordered 12/11/24 Ordered By: Nam Monroe/Other Patient Handouts: Managing Type 2 Diabetes, Treating Epididymitis and Orchitis, ED Epididymitis, ED Orchitis Admission Data Admit Date/Time: 12/09/24 20:48 Attending Provider: Nam Santos Admit Provider: Price Santiago Primary Care Provider: Esthela JAIN Other Providers: Price Santiago Other Interventions: Discharge Summary Assessment (RN) Last Done: 12/11/24 13:44 Hospital Stay Data Consultations 12/09/24 19:57 ED Decision to Admit Stat Diagnostic Imagining Performed 12/09/24 18:33 US scrotum/testicle Stat Pending Results Patient Have Any Pending Studies at Discharge: Yes Discharge Instructions Given to Patient (Per Discharging Provider) Mr Tony was treated for right-sided orchitis/epididymitis. He improved with IV antibiotics. Blood cultures were negative. WBC count was 29, improving to 10 on day of discharge. Urine GC & chlamydia were sent/pending at discharge. Testicular u/s did not show torsion or testicular mass. Recommendations - 1. scrotal support - boxer briefs or standard briefs; avoid boxer shorts. 2. elevate scrotum when lying down. 3. ice prn. 4. naprosyn 500mg twice daily x 3 days then stop. 5. levofloxacin 500mg daily x 10 days starting 12/12/24. 6. for diabetes increase metformin to 500mg twice daily with meals. Coding Diagnoses Orchitis of right testicle N45.2 Epididymitis, right N45.1 Hyperlipidemia E78.5 Diabetes mellitus E11.9
[2024-12-11 16:01] LABS: Chlam trach RNA(Genit,Ureth,Ur Not Detected (NotDetected); GC(Neis gon)RNA(Genit,Ureth,Ur Not Detected (NotDetected)
== END 2024-12-11 15:13 | DRG 728 ==
LOC: ED 17:57 → 2W 20:48 → SUATTDRO 20:48 → 2W 22:39